=== PATIENT | male | born 1950 | race Caucasian/White ===

== ENCOUNTER 2019-01-30 11:17 | Emergency (ER) | payer BC, MEDICARE, OTHER ==
[~2019-01-30] VITALS: Ht 183 cm; Wt 118.0 kg
[2019-01-30] MEDS ORDERED: SCOPOLAMINE 1.5 MG (TRANSDERM-SCOP) PATCH TD ONE (13:15)
[2019-01-30 13:18] VITALS: BP_SYST 146; BP_SYST 154; BP_SYST 159; BP_DIAS 75; BP_DIAS 89; BP_DIAS 92
--- NOTE | 2019-01-30 13:25 | ED General ---
General Chief Complaint: Dizziness/Syncope Stated Complaint: DIZZINESS Source of Information: Patient History of Present Illness Date Seen by Provider: Jan 30, 2019 Time Seen by Provider: 13:00 Initial Comments PT ARRIVES VIA POV --CALLED EMS EARLIER, THEN REFUSED CARE. C/O DIZZINESS SINCE LAST PM/ EARLY THIS AM STATES HE GOT UP IN THE MIDDLE OF THE NIGHT TO URINATE AND WAS SUDDENLY VERY DIZZY. LAID BACK DOWN AND IT WENT AWAY GOT UP THIS AM AND DIZZINESS RETURNED, THEN WENT AWAY DIZZINESS COMES AND GOES SEVERAL TIMES TODAY, AND SEEMS TO BE MOSTLY WHEN HE CHANGES POSITIONS FROM LAYING DOWN TO SITTING OR STANDING NO HISTORY OF SIMILAR NO PAIN ANYWHERE NO HEADACHE NO CHEST PAIN --DENIES ANY CARDIAC HISTORY NO SHORTNESS OF BREATH--DENIES ANY PULMONARY HISTORY NO PALPITATIONS NO VISION CHANGES NO NEW PARESTHESIAS OR MOTOR DEFICITS--HAS SOME OLD NUMBNESS IN RIGHT GREAT TOE AND IN RIGHT FINGERS--DENIES HISTORY OF CVA/TIA'S NO FEVER/SWEATS/CHILLS NO COUGH OR URI/SINUS SYMPTOMS PT STATES HE HAD LUMBAR SPINE SURGERY 6 WEEKS AGO, AND WAS SEEN BY HIS SURGEON ON Saturday01/27/19 AND EVERYTHING IS GOING WELL FROM SURGERY STANDPOINT PT HAS HAD SWELLING TO BOTH LEGS SINCE SURGERY, BUT WORSE THE LAST COUPLE OF WEEKS NO CALF PAIN PT HAS HAD RIGHT EAR INFECTION--WAS SEEN BY HIS PCP LAST WEEK AND GIVEN STEROID DROPS X 4-5 DAYS--STATES HE FINISHED THEM ON SATURDAY, BUT STILL HAS SOME DECREASED HEARING IN RIGHT EAR, BUT NO EAR PAIN AND NO DRAINAGE FROM EAR ALSO STATES HE HAS BEEN TREATED FOR UTI, AND FINISHED UNKNOWN ANTIBIOTIC ON SATURDAY WELL STATES HE HAS BEEN GETTING UP AT NIGHT 4-5 TIMES, TO URINATE, WHICH IS NOT NORM AL FOR HIM NO PAIN ON URINATION. 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, AND WAS GOING TO DRIVE BACK HOME TODAY Allergies and Home Medications Allergies Coded Allergies: No Allergy Information Available (Unverified , 01/30/19) Review of Systems Review of Systems Constitutional: see HPI; No chills, No diaphoresis; dizziness; No fever, No malaise, No weakness EENTM: see HPI, hearing loss, ear pain; No ear discharge, No eye pain, No nose congestion, No throat pain Respiratory: no symptoms reported; No cough, No short of breath, No wheezing Cardiovascular: see HPI; No chest pain; edema; No palpitations, No syncope Gastrointestinal: no symptoms reported; No abdominal pain, No constipation, No diarrhea, No nausea, No vomiting Genitourinary: see HPI, frequency; No hematuria, No hesitancy; nocturia; No pain Musculoskeletal: see HPI, back pain, other (LEG SWELLING) Skin: no symptoms reported Psychiatric/Neurological: See HPI; Denies Headache; Pre-Existing Deficit; Denies Weakness Hematologic/Lymphatic: No Symptoms Reported Immunological/Allergic: no symptoms reported Past Qkshbvk-Ogjltw-Fwjesx Hx Patient Social History Recent Foreign Travel: No Contact w/Someone Who Travel: No Past Medical History Surgeries: Yes (LUMBAR SPINE SURGERY 12/2018) Orthopedic Respiratory: No Cardiac: Yes Hypertension Neurological: No Genitourinary: Yes (PROSTATE CANCER) Gastrointestinal: No Musculoskeletal: Yes (RADICULOPATHY) Chronic Back Pain Endocrine: No HEENT: No Cancer: Yes (PROSTATE CANCER 2016--S/P RADIATION) Prostate Did You Recieve Any Treatments: Yes What Type of Treatment Did You: Radiation Psychosocial: No Integumentary: No Blood Disorders: No Physical Exam Vital Signs Vital Signs - First Documented 01/30/19 13:02 Temp 37.6 Pulse 75 Resp 20 B/P (MAP) 172/91 (118) Pulse Ox 97 O2 Delivery Room Air Capillary Refill : Height, Weight, BMI Height: '" Weight: lbs. oz. kg; BMI Method: Progress/Results/Core Measures Suspected Sepsis SIRS Temperature: Pulse: Respiratory Rate: Laboratory Tests 01/30/19 13:15: White Blood Count 6.7 Blood Pressure / Mean: Laboratory Tests 01/30/19 13:15: Creatinine 0.98, INR Comment 1.0, Platelet Count 274, Total Bilirubin 1.0 Results/Orders Lab Results Laboratory Tests Test 01/30/19 13:15 01/30/19 13:30 Range/Units White Blood Count 6.7 4.3-11.0 10^3/uL Red Blood Count 4.03 L 4.35-5.85 10^6/uL Hemoglobin 12.9 L 13.3-17.7 G/DL Hematocrit 38 L 40-54 % Mean Corpuscular Volume 95 80-99 FL Mean Corpuscular Hemoglobin 32 25-34 PG Mean Corpuscular Hemoglobin Concent 34 32-36 G/DL Red Cell Distribution Width 14.1 10.0-14.5 % Platelet Count 274 130-400 10^3/uL Mean Platelet Volume 8.7 7.4-10.4 FL Neutrophils (%) (Auto) 61 42-75 % Lymphocytes (%) (Auto) 26 12-44 % Monocytes (%) (Auto) 11 0-12 % Eosinophils (%) (Auto) 1 0-10 % Basophils (%) (Auto) 0 0-10 % Neutrophils # (Auto) 4.1 1.8-7.8 X 10^3 Lymphocytes # (Auto) 1.8 1.0-4.0 X 10^3 Monocytes # (Auto) 0.7 0.0-1.0 X 10^3 Eosinophils # (Auto) 0.1 0.0-0.3 10^3/uL Basophils # (Auto) 0.0 0.0-0.1 10^3/uL Prothrombin Time 13.3 12.2-14.7 SEC INR Comment 1.0 0.8-1.4 Activated Partial Thromboplast Time 29 24-35 SEC Sodium Level 140 135-145 MMOL/L Potassium Level 3.6 3.6-5.0 MMOL/L Chloride Level 103 98-107 MMOL/L Carbon Dioxide Level 26 21-32 MMOL/L Anion Gap 11 5-14 MMOL/L Blood Urea Nitrogen 13 7-18 MG/DL Creatinine 0.98 0.60-1.30 MG/DL Estimat Glomerular Filtration Rate > 60 BUN/Creatinine Ratio 13 Glucose Level 99 70-105 MG/DL Calcium Level 9.5 8.5-10.1 MG/DL Corrected Calcium 9.4 8.5-10.1 MG/DL Magnesium Level 1.9 1.6-2.4 MG/DL Total Bilirubin 1.0 0.1-1.0 MG/DL Aspartate Amino Transf (AST/SGOT) 25 5-34 U/L Alanine Aminotransferase (ALT/SGPT) 22 0-55 U/L Alkaline Phosphatase 63 40-136 U/L Total Creatine Kinase 97 30-200 U/L Creatine Kinase MB 1.7 <6.6 NG/ML Troponin I < 0.028 <0.028 NG/ML B-Type Natriuretic Peptide 31.4 <100.0 PG/ML Total Protein 7.2 6.4-8.2 GM/DL Albumin 4.1 3.2-4.5 GM/DL TSH [place] Testing 1.80 0.35-4.94 UIU/ML Urine Color YELLOW Urine Clarity CLEAR Urine pH 7 5-9 Urine Specific Burke 1.005 L 1.016-1.022 Urine Protein NEGATIVE NEGATIVE Urine Glucose (UA) NEGATIVE NEGATIVE Urine Ketones NEGATIVE NEGATIVE Urine Nitrite NEGATIVE NEGATIVE Urine Bilirubin NEGATIVE NEGATIVE Urine Urobilinogen NORMAL NORMAL MG/DL Urine Leukocyte Esterase NEGATIVE NEGATIVE Urine RBC (Auto) NEGATIVE NEGATIVE Urine RBC NONE /HPF Urine WBC NONE /HPF Urine Squamous Epithelial Cells 0-2 /HPF Urine Crystals NONE /LPF Urine Bacteria NEGATIVE /HPF Urine Casts NONE /LPF Urine Mucus NEGATIVE /LPF Urine Culture Indicated NO My Orders Orders - MARIKA VENCES DO Accucheck Stat ONCE (01/30/19 13:02) Ed Iv/Invasive Line Start (01/30/19 13:02) Ekg Tracing (01/30/19 13:02) Monitor-Rhythm Ecg Trace Only (01/30/19 13:02) Ct Head Wo-R/O Stroke (01/30/19 13:02) Chest 1 View, Ap/Pa Only (01/30/19 13:02) Cbc With Automated Diff (01/30/19 13:02) Comprehensive Metabolic Panel (01/30/19 13:02) Protime With Inr (01/30/19 13:02) Partial Thromboplastin Time (01/30/19 13:02) Thyroid Analyzer (01/30/19 13:02) Ua Culture If Indicated (01/30/19 13:02) Troponin I (01/30/19 13:02) Orthostatic Vital Signs (Adult (01/30/19 13:02) BNP (01/30/19 13:02) Creatine Kinase (01/30/19 13:02) Creatine Kinase Mb (01/30/19 13:02) Magnesium (01/30/19 13:02) Scopolamine Patch (Transderm-Scop Patch) (01/30/19 13:15) Ed Iv/Invasive Line Start (01/30/19 13:30) Lactated Ringers (Lr 1000 Ml Iv Solution (01/30/19 13:30) Ct Angio Head/Neck (01/30/19 14:21) Ct Chest W (01/30/19 14:32) Iohexol Injection (Omnipaque 350 Mg/Ml 1 (01/30/19 14:45) Received Contrast (Hold Metformin- Contr (01/30/19 14:45) Sodium Chloride Flush (Catheter Flush Sy (01/30/19 14:45) Ns (Ivpb) (Sodium Chloride 0.9% Ivpb Bag (01/30/19 14:45) Medications Given in ED Current Medications Medications Dose Ordered Sig/Jyoti Route Start Time Stop Time Status Last Admin Dose Admin Iohexol 100 ml ONCE ONCE IV 01/30/19 14:45 01/30/19 14:46 DC 01/30/19 15:33 75 ML Lactated Ringer's 1,000 ml @ 0 mls/hr Q0M ONCE IV 01/30/19 13:30 01/30/19 13:33 DC 01/30/19 13:44 1,000 MLS/HR Scopolamine 1.5 mg ONCE ONCE TD 01/30/19 13:15 01/30/19 13:16 DC 01/30/19 13:44 1.5 MG Sodium Chloride 10 ml NEEDED PRN IV 01/30/19 14:45 01/30/19 15:33 10 ML Sodium Chloride 100 ml ONCE ONCE IV 01/30/19 14:45 01/30/19 14:46 DC 01/30/19 15:33 80 ML Vital Signs/I&O 01/30/19 01/30/19 13:02 13:18 Temp 37.6 Pulse 75 72 75 74 Resp 20 B/P (MAP) 172/91 (118) 159/75 (103) 154/89 (110) 146/92 (110) Pulse Ox 97 O2 Delivery Room Air Capillary Refill : Progress Note : Progress Note ORTHOSTATICS--MILD DROP IN BP, AND PT VERY SYMPTOMATIC ON POSITION CHANGES ECG Initial ECG Impression Date: Jan 30, 2019 Initial ECG Impression Time: 13:24 Initial ECG Rate: 69 Initial ECG Rhythm: Normal Sinus (LBBB) Initial ECG Comparisson: No Previous ECG Available Departure Impression Primary Impression: Dizziness Additional Impression: Cerebrovascular disease Disposition: 01 HOME, SELF-CARE Condition: Improved Departure-Patient Inst. Referrals: NO,LOCAL PHYSICIAN (PCP) Primary Care Physician Patient Instructions: Peripheral Vascular (Arterial) Disease (DC), Vertigo (a Type of Dizziness) (DC) Add. Discharge Instructions: SLOW POSITION CHANGES NO DRIVING UNTIL YOUR DIZZINESS IS COMPLETELY GONE LEAVE SCOPOLAMINE PATCH IN PLACE FOR 72 HOURS FOLLOW UP WITH YOUR DR NEXT WEEK FOR FURTHER CARE, GO TO NEAREST ER IF SYMPTOMS WORSEN All discharge instructions reviewed with patient and/or family. Voiced understanding. Scripts Scopolamine (Transderm-Scop) 1 Each Patch.td72 1 EACH TD Q72 HOURS for Dizziness, #3 PATCH Prov: MARIKA VENCSE DO 01/30/19 Meclizine HCl (Meclizine HCl) 25 Mg Tablet 25-50 MG PO Q6H for Dizziness, #30 TAB Prov: MARIKA VENCES DO 01/30/19 MARIKA VENCES DO Jan 30, 2019 13:25
[2019-01-30] MEDS ORDERED: LACTATED RINGERS 1,000 ML IV ONE (13:30)
[2019-01-30 13:35] LABS: BASOPHILS % (AUTO) 0 % (0-10); EOSINOPHILS # (AUTO) 0.1 10^3/uL (0.0-0.3); EOSINOPHILS % (AUTO) 1 % (0-10); HEMATOCRIT 38 % (40-54); HEMOGLOBIN 12.9 G/DL (13.3-17.7); LYMPHOCYTES # (AUTO) 1.8 X 10^3 (1.0-4.0); LYMPHOCYTES % (AUTO) 26 % (12-44); MEAN CORPUSCULAR HEMOGLOBIN 32 PG (25-34); MEAN CORPUSCULAR HGB CONC 34 G/DL (32-36); MEAN CORPUSCULAR VOLUME 95 FL (80-99); MEAN PLATELET VOLUME 8.7 FL (7.4-10.4); MONOCYTES # (AUTO) 0.7 X 10^3 (0.0-1.0); MONOCYTES % (AUTO) 11 % (0-12); NEUTROPHILS # (AUTO) 4.1 X 10^3 (1.8-7.8); NEUTROPHILS % (AUTO) 61 % (42-75); PLATELET COUNT 274 10^3/uL (130-400); RED CELL DISTRIBUTION WIDTH 14.1 % (10.0-14.5); WHITE BLOOD COUNT 6.7 10^3/uL (4.3-11.0)
[2019-01-30 13:42] LABS: BILIRUBIN,URINE NEGATIVE (NEGATIVE); CLARITY,URINE CLEAR; COLOR,URINE YELLOW; GLUCOSE, URINE (UA) NEGATIVE (NEGATIVE); KETONES,URINE NEGATIVE (NEGATIVE); LEUKOCYTE ESTERASE ,URINE NEGATIVE (NEGATIVE); NITRITE,URINE NEGATIVE (NEGATIVE); PH,URINE 7 (5-9); PROTEIN,URINE NEGATIVE (NEGATIVE); UROBILINOGEN,URINE NORMAL (NORMAL)
[2019-01-30 13:48] LABS: BACTERIA,URINE NEGATIVE /HPF; SQUAMOUS EPITHELIAL CELL,UR 0-2 /HPF
[2019-01-30 13:49] LABS: PROTHROMBIN TIME PATIENT 13.3 SEC (12.2-14.7)
[2019-01-30 13:58] LABS: ALANINE AMINOTRANSFERASE 22 U/L (0-55); ALBUMIN 4.1 GM/DL (3.2-4.5); ALKALINE PHOSPHATASE 63 U/L (40-136); BUN/CREATININE RATIO 13; CALCIUM 9.5 MG/DL (8.5-10.1); CARBON DIOXIDE 26 MMOL/L (21-32); CHLORIDE 103 MMOL/L (98-107); CREATINE KINASE 97 U/L (30-200); CREATININE SERUM 0.98 MG/DL (0.60-1.30); GFR ESTIMATED > 60; GLUCOSE 99 MG/DL (70-105); MAGNESIUM 1.9 MG/DL (1.6-2.4); POTASSIUM 3.6 MMOL/L (3.6-5.0); SODIUM 140 MMOL/L (135-145); TOTAL PROTEIN 7.2 GM/DL (6.4-8.2)
--- NOTE | 2019-01-30 14:18 | Diagnostic Imaging Report ---
PROCEDURE: CT head wo r/o stroke. TECHNIQUE: Multiple contiguous axial images were obtained through the brain without the use of intravenous contrast. Auto Exposure Controls were utilized during the CT exam to meet ALARA standards for radiation dose reduction. INDICATION: Dizziness. COMPARISON: No prior studies are available for comparison. FINDINGS: The ventricles and sulci are within normal limits. No sulcal effacement or midline shift is detected. No acute intra-axial or extra-axial hemorrhage is detected. Cisterns are patent. The visualized paranasal sinuses demonstrate mucosal thickening of the left maxillary sinus. IMPRESSION: No acute intracranial process is detected. Dictated by: Dictated on workstation # [id number]
[2019-01-30 14:21] LABS: CREATINE KINASE MB 1.7 NG/ML (<6.6)
--- NOTE | 2019-01-30 14:31 | Diagnostic Imaging Report ---
CLINICAL INDICATION: Patient with dizziness this morning. Patient was recently treated for inner ear infection. EXAM: Portable chest x-ray upright view. COMPARISONS: None. FINDINGS: Lungs/pleura: Lungs are clear. There is no pneumothorax. There is no pleural effusion. Mediastinum: Unremarkable. Pulmonary vasculature: Unremarkable. Heart: Cardiac silhouette is upper limits of normal. Bones/extrathoracic soft tissue: There are hypertrophic spurs involving the thoracic spine. IMPRESSION: There is no radiographic evidence of acute cardiopulmonary process. Dictated by: Dictated on workstation # [id number]
[2019-01-30] MEDS ORDERED: CATHETER FLUSH 10 ML SYR IV PRN (14:45)
[2019-01-30] MEDS ORDERED: IOHEXOL 350 MG/ML 100 ML (OMNIPAQUE 350) VIAL IV ONE (14:45)
[2019-01-30] MEDS ORDERED: HOLD METFORMIN - RECEIVED CONTRAST 20 ML VIAL IV SCH (14:45)
[2019-01-30] MEDS ORDERED: NS 100 ML (IVPB) BAG IV ONE (14:45)
--- NOTE | 2019-01-30 15:42 | Diagnostic Imaging Report ---
PROCEDURE: CT chest with contrast only. TECHNIQUE: Multiple contiguous axial images were obtained through the chest after administration of intravenous contrast. Auto Exposure Controls were utilized during the CT exam to meet ALARA standards for radiation dose reduction. INDICATION: Dizziness. COMPARISON: None provided. FINDINGS: The heart size is within normal limits. No pericardial effusion is present. There is calcified aortic and coronary atherosclerotic plaque. The timing of the exam does not allow for evaluation of the vascular structures in the chest. There is no mediastinal, hilar, or axillary lymphadenopathy. Scattered calcified mediastinal and right hilar lymph nodes are noted. The lungs demonstrate no pulmonary nodules or masses. There are no focal areas of consolidation. No central endobronchial obstructing lesions are identified. There is no pleural effusion or pneumothorax. Noncalcified pleural thickening is seen in the lungs bilaterally, most prominent in the left lower lung measuring 3.7 x 0.5 cm (image 101, series 6). The osseous structures demonstrate no acute abnormalities. Limited views of the upper abdominal structures demonstrate no acute abnormalities. Both adrenal glands are unremarkable. IMPRESSION: 1. No focal consolidation or pulmonary mass. 2. Noncalcified pleural thickening bilaterally, most prominent in the left lower lobe. This is nonspecific and may represent prior asbestos exposure. Consider followup in 6-12 months. 3. Due to the timing of the exam, the vascular structures of the chest are not well evaluated. Dictated by: Dictated on workstation # [id number]
--- NOTE | 2019-01-30 16:29 | Diagnostic Imaging Report ---
PROCEDURE: CT angiography of the head and CT angiography of the neck with and without contrast. TECHNIQUE: Contiguous noncontrast images were obtained from the skull base through the vertex. After intravenous contrast administration, helical CT angiography of the neck was performed. Source data was reformatted into 3D MIP projections. Delayed post contrast acquisition was also obtained. Auto Exposure Controls were utilized during the CT exam to meet ALARA standards for radiation dose reduction. INDICATION: Dizziness. COMPARISON: CT head performed earlier the same date. FINDINGS: CTA Neck: The visualized portions of the aortic arch demonstrate no evidence of aneurysm or dissection. Note is made of the origin of the left vertebral artery directly off the aorta. The brachiocephalic artery is normal in course and caliber. The right and left common carotid origins are unremarkable. The origin of the left subclavian artery is patent. The common carotid arteries and internal carotid arteries demonstrate a tortuous course. There is calcified atherosclerotic plaque in the bilateral carotid bulbs and proximal internal carotid arteries without flow-limiting stenosis. No evidence of dissection in the carotid systems. The external carotid arteries are patent and unremarkable. The left vertebral artery is dominant. The origin of the right vertebral artery is seen and is unremarkable. The origin of the left vertebral artery is seen and is unremarkable. There is no focal stenosis seen within the neck. There is no dissection. The vertebral arteries are well visualized to up to the level of the basilar artery. The osseous structures of the cervical spine demonstrate degenerative change without acute fracture or dislocation. Included views through the lung apices demonstrate no focal consolidation. CTA brain: Atherosclerotic plaque is seen in the palmer of the bilateral terminal internal carotid arteries without significant stenosis. Narrowing is noted in the left A2 segment. The right GERONIMO is unremarkable. There is stenosis of the inferior division of the left M2 segment. The remainder of the left MCA is unremarkable. The right MCA is widely patent. The bilateral middle cerebral arteries are visualized without evidence of focal stenosis. Luminal irregularity is seen in the P2 and P3 segments of the left posterior cerebral artery. The right posterior cerebral artery has a normal appearance. No evidence of aneurysm the [place]. In the posterior circulation, both of the vertebral arteries demonstrate normal opacification. Both the right and left PICA arteries are identified. The basilar artery is normal in course and caliber. The terminal branch vessels including the superior cerebellar arteries unremarkable. IMPRESSION: 1. Findings consistent with intracranial atherosclerotic disease with stenosis of the inferior division of the left MCA. Additional narrowing is seen in the left A2 segment and P2 and P3 segments of the left posterior cerebral artery. No evidence of acute ischemia is visualized. 2. No evidence of aneurysm of the [place]. 3. No stenosis or dissection the bilateral carotid and vertebral arteries. Findings were discussed with Dr. Yusra Paul at 4:20 p.m. on 01/30/[address] Esdras Liu. Dictated by: Dictated on workstation # [id number]
[2019-01-30] MEDS ORDERED: SCOP1PAT11 TD (16:54)
[2019-01-30] MEDS ORDERED: MECL-106 PO (16:54)
[2019-01-30 17:09] VITALS: BP 138/73
== END 2019-01-30 17:09 | disposition home or self-care (01) ==
LOC: ER 11:19
DX: I63.9 Cerebral infarction, unspecified (principal); R42 Dizziness and giddiness; I10 Essential (primary) hypertension; Z85.46 Personal history of malignant neoplasm of prostate; Z98.890 Other specified postprocedural states
CPT/HCPCS: 36415; 70450; 70496; 70498; 71045; 71260; 80053; 81000; 82550; 82553; 83735; 83880; 84443; 84484; 85025; 85610; 85730; 93005; 93041

== ENCOUNTER → 2023-04-26 | Outpatient (CLI) | payer MEDICARE ==
[~2023-04-26] MED LIST: MECL-291 PO; SCOP1PAT10 TD
--- NOTE | 2023-04-26 15:02 | Diagnostic Imaging Report ---
MRI ANKLE RT WO INDICATION: Ankle pain COMPARISON: None available. TECHNIQUE: Multiplanar, multisequence MR imaging of the right ankle was performed without contrast. FINDINGS: TENDONS: Achilles is intact. Peroneus brevis is intact. There is a high-grade partial-thickness longitudinal type tear in the peroneus longus as it curves under the cuboid.. The posterior tibialis, flexor digitorum longus and flexor hallucis longus are normal were seen. The anterior tibialis, extensor hallucis longus and extensor digitorum longus are also normal were seen. LIGAMENTS: The anterior and posterior distal tibiofibular ligaments are intact. The anterior talofibular, calcaneofibular and posterior talofibular ligaments are normal. Medial deltoid ligamentous complex is intact. Spring ligament is normal. Dorsal talonavicular ligament is normal. BONES AND CARTILAGE: No osteochondral lesion of the talar dome. There are few degenerative-type foci of subchondral edema in the talar dome and tibial plafond. No fracture or stress fracture. The articular cartilage of the tibiotalar and posterior subtalar joints are normal. SOFT TISSUES: No evidence of plantar fasciitis. No abnormal soft tissue scar/fibrosis within the tarsal canal/sinus tarsi or tarsal tunnel. No ankle joint effusion. IMPRESSION: 1. High-grade partial-thickness tear of the peroneus longus as it courses under the cuboid. 2. Moderate osteoarthritis of the tibiotalar joint. Dictated by: Dictated on workstation # [id number]
== END ==
LOC: RAD 09:32
PROVIDERS: ATTEND Podiatrist Foot & Ankle Surgery
DX: M19.071 Primary osteoarthritis, right ankle and foot (principal); M76.71 Peroneal tendinitis, right leg
CPT/HCPCS: 73725